=== PATIENT | female | born 1950 | race Caucasian/White ===

== ENCOUNTER 2025-05-22 08:11 | Emergency (ER) | payer BC ==
[~2025-05-22] VITALS: Ht 157.5 cm; Wt 63.5 kg
[2025-05-22 08:11] VITALS: BP 113/82; PULSE 75; RESP 18; TEMP 97.7; O2SAT 95
[2025-05-22 08:41] LABS: BASOPHIL # 0.0 10^3/uL (0.0-0.1); BASOPHIL % 0.6 % (0.1-1.2); EOSINOPHIL # 0.2 10^3/uL (0.0-0.2); EOSINOPHIL % 4.1 % (0.0-5.0); HEMATOCRIT(ML) 45.4 % (36.0-46.0); IG % 0.20 % (0.00-0.50); LYMPHOCYTES # 2.18 10^3/uL1 (1.0-4.8); LYMPHOCYTES % 40.4 % (24.0-44.0); MEAN CORP HGB 28.3 pg (26-34); MEAN CORP HGB CONCENTRATION 31.3 g/dL (33-36.5); MEAN CORP VOLUME 90.6 fL (78-100); MONOCYTES # 0.4 10^3/uL (0.3-0.8); MONOCYTES % 6.5 % (5.0-12.0); NEUTROPHIL # 2.6 10^3/uL (1.8-7.7); NEUTROPHILS % 48.2 % (41.0-85.0); RED BLOOD CELL 5.01 10^6/uL (4.00-5.20); RED CELL DISTRIBUTION WIDTH 13.9 % (11.5-14.5); WHITE BLOOD CELL 5.4 10^3/uL (4.5-11.0)
[2025-05-22] MEDS ORDERED: ASPIRIN ONE (08:43)
[2025-05-22] MEDS: ASPIRIN PO STA (08:46)
[2025-05-22 09:05] LABS: CREATININE SERUM 0.58 mg/dL (0.59-1.40)
[2025-05-22 09:06] LABS: ALANINE AMINOTRANSFERASE(ML) 24.0 U/L (12-78); ALBUMIN(ML) 3.8 g/dL (3.4-5.0); EST GFR, NON-AA 102.2 (>/=60); TROPONIN I HIGH SENSITIVITY 7.0 ng/L (0-50)
[2025-05-22 09:24] VITALS: BP 107/63; PULSE 63; RESP 18; O2SAT 93
[2025-05-22 10:07] VITALS: BP 112/65; PULSE 64; RESP 18; O2SAT 95
== END 2025-05-22 09:50 | disposition home or self-care (01) ==
LOC: ER 08:11
DX: R00.2 Palpitations (principal)
CPT/HCPCS: 99284; 71045; 80053; 85025; 36415; 84484; 83605; 84443; 83735; 93005; J8499; 80050

== ENCOUNTER → 2025-06-06 | Outpatient (CLI) | payer BC | END | disposition home or self-care (01) | LOC: RAD 08:40 | PROVIDERS: ATTEND Internal Medicine | DX: I08.3 Combined rheumatic disorders of mitral, aortic and tricuspid valves (principal); R00.2 Palpitations; R01.1 Cardiac murmur, unspecified | CPT/HCPCS: 93306 ==